=== PATIENT | male | born 1970 | race Caucasian/White ===

== ENCOUNTER 2019-02-23 12:45 | Inpatient (IN) | payer OTHER ==
[2019-02-23] MEDS ORDERED: ONDANSETRON HCL INJ/PF 4 MG/2 ML SDV IV ONE (13:12)
--- NOTE | 2019-02-23 13:15 | ER Document Report ---
ED Medical Screen (RME) - General Chief Complaint: Chest Pain Stated Complaint: DIZZINESS,CHEST PAIN Time Seen by Provider: 02/23/19 12:46 Notes: Patient is a 48-year-old male who presents the emergency department with a chief complaint of chest pain. Patient states that this morning he had a sharp chest pain of his chest that radiated out. It is dull on the sides of his chest. Patient states that he also vomited some "black stuff." He also had some dark tarry stools this morning. Patient takes 800 mg of Motrin daily. Denies jeremiah right red hematemesis. Exam: Soft mildly tender mid abdomen. I have greeted and performed a rapid initial assessment of this patient. A comprehensive ED assessment and evaluation of the patient, analysis of test results and completion of medical decision making process will be conducted by an additional ED providers. TRAVEL OUTSIDE OF THE [place] IN LAST 30 DAYS: No - Related Data Allergies/Adverse Reactions: nuvia Allergy (Verified 02/23/19 13:03) Past Medical History - Social History Chew tobacco use (# tins/day): No Frequency of alcohol use: Social Drug Abuse: None Physical Exam - Vital signs Vitals: Temp Pulse BP Pulse Ox 98.3 F 119 H 145/104 H 99 02/23/19 13:00 02/23/19 13:00 02/23/19 13:00 02/23/19 13:00 Course - Vital Signs Vital signs: Temp Pulse Resp BP Pulse Ox 98.3 F 119 H 145/104 H 99 02/23/19 13:00 02/23/19 13:00 02/23/19 13:00 02/23/19 13:00
[2019-02-23] MEDS ORDERED: ONDANSETRON 4 MG TAB.RAPDIS PO ONE (13:22)
--- NOTE | 2019-02-23 13:46 | RADIOLOGY REPORT (SQ) ---
EXAM DESCRIPTION: CHEST SINGLE VIEW COMPLETED DATE/TIME: 02/23/2019 1:37 pm REASON FOR STUDY: vomiting; chest pain COMPARISON: None. EXAM PARAMETERS: NUMBER OF VIEWS: One view. TECHNIQUE: Single frontal radiographic view of the chest acquired. RADIATION DOSE: NA LIMITATIONS: None. FINDINGS: LUNGS AND PLEURA: No opacities, masses or pneumothorax. No pleural effusion. MEDIASTINUM AND HILAR STRUCTURES: No masses. Contour normal. HEART AND VASCULAR STRUCTURES: Heart normal in size. Normal vasculature. BONES: Old healed left upper lateral rib fractures. Question old nonunited right distal clavicle fra cture at the level of the coracoclavicular ligament HARDWARE: None in the chest. OTHER: No other significant finding. IMPRESSION: No acute findings. TECHNICAL DOCUMENTATION: JOB ID: [id number] [employer]- All Rights Reserved Reading location - IP/workstation name: [email or web address]
[2019-02-23 13:48] LABS: ABSOLUTE BASOPHILS # (AUTO) 0.1 10^3/uL (0.0-0.2); ABSOLUTE LYMPHOCYTES (AUTO) 1.4 10^3/uL (0.5-4.7); ABSOLUTE MONOCYTES (AUTO) 1.4 10^3/uL (0.1-1.4); ABSOLUTE NEUT (AUTO) 12.5 10^3/uL (1.7-8.2); BASOPHILS % (AUTO) 0.6 % (0-2); EOSINOPHILS % (AUTO) 0.1 % (0-6); HEMATOCRIT 50.6 % (37.9-51.0); HEMOGLOBIN 17.7 g/dL (13.5-17.0); LYMPHOCYTES % (AUTO) 8.9 % (13-45); MEAN CORPUSCULAR HEMOGLOBIN 34.9 pg (27.0-33.4); MEAN CORPUSCULAR HGB CONC 34.9 g/dL (32.0-36.0); MEAN CORPUSCULAR VOLUME 100 fl (80-97); PLATELET COUNT 203 10^3/uL (150-450); RED BLOOD COUNT 5.06 10^6/uL (4.35-5.55); RED CELL DISTRIBUTION WIDTH 12.7 % (11.5-14.0); SEGMENTED NEUTROPHILS % (AUTO) 81.4 % (42-78); TOTAL CELLS COUNTED % (AUTO) 100 %; WHITE BLOOD COUNT 15.4 10^3/uL (4.0-10.5)
--- NOTE | 2019-02-23 14:02 | ER Document Report ---
ED General - General Chief Complaint: Chest Pain Stated Complaint: DIZZINESS,CHEST PAIN Time Seen by Provider: 02/23/19 12:46 Primary Care Provider: [facility] [Primary Care Provider] - Follow up as needed TRAVEL OUTSIDE OF THE [place] IN LAST 30 DAYS: No - HPI Notes: Patient is a 48-year-old male with history of GERD, chronic joint pain, and tobacco abuse who presents complaining of lower sternal chest pain, intermittent abdominal pain, nausea/vomiting, loose stool that began yesterday. He does have occ dizziness. Patient states that he had really bad acid reflux yesterday and took a lot of Tums for it. Patient states that he has been taking NSAIDs daily for 25 years for chronic shoulder pain. He is also been drinking wine on occasion. Patient states that his vomiting is all black as well as his stool. He otherwise has had decreased p.o. intake. He is urinating normally. Denies drug allergies. He has never needed a blood transfusion in the past. Denies any headache, fever, URI, sore throat, palpitations, syncope, cough, shortness of breath, wheeze, dyspnea, urinary retention, dysuria, hematuria, back pain, or rash. - Related Data Allergies/Adverse Reactions: nuvia Allergy (Verified 02/23/19 13:03) Past Medical History - Social History Smoking Status: Current Every Day Smoker Chew tobacco use (# tins/day): No Frequency of alcohol use: Social Drug Abuse: None Family History: Reviewed & Not Pertinent Patient has suicidal ideation: No Patient has homicidal ideation: No Review of Systems - Review of Systems -: Yes All other systems reviewed and negative Physical Exam - Vital signs Vitals: Temp Pulse BP Pulse Ox 98.3 F 119 H 145/104 H 99 02/23/19 13:00 02/23/19 13:00 02/23/19 13:00 02/23/19 13:00 - Notes Notes: PHYSICAL EXAMINATION: GENERAL: Well-appearing, well-nourished and in no acute distress. A&Ox4. answers questions appropriately. HEAD: Atraumatic, normocephalic. EYES: Pupils equal round and reactive to light, extraocular movements intact, sclera anicteric, conjunctiva are normal. ENT: Nares patent and without discharge. oropharynx clear without exudates. No tonsilar hypertrophy or erythema. Moist mucous membranes. NECK: Normal range of motion, supple without lymphadenopathy LUNGS: Breath sounds clear to auscultation bilaterally and equal. No wheezes rales or rhonchi. HEART: Regular rate and rhythm without murmurs, rubs, gallops. ABDOMEN: Soft, nondistended abdomen. No guarding, no rebound. Normal bowel sounds present. No CVA tenderness bilaterally. + mild mid abd tenderness. Musculoskeletal: FROM to passive/active. Strength 5+/5. No calf tenderness. Guera neg b/l. No LE asymmetry. Extremities: No cyanosis, clubbing, or edema b/l. Peripheral pulses 2+. Capillary refill less than 3 seconds. NEUROLOGICAL: Cranial nerves grossly intact. Normal speech, normal gait. Normal sensory, motor exams PSYCH: Normal mood, normal affect. SKIN: Warm, Dry, normal turgor, no rashes or lesions noted. Course - Re-evaluation Re-evalutation: 02/23/19 14:17 Bedside guiac was + for melena and blood. UGI bleed suspected and Protonix meds ordered with a type and screen. We will continue cardiac work up as well for now. 02/23/19 14:38 I did call and speak with Dr. Ferreira who states that Dr. Palencia will perform an endoscopy tomorrow for the patient and to admit to medicine with surgical consult. Patient is an afebrile, well-hydrated, 48-year-old male who presents with an upper GI bleed and nonspecific chest pain. Vitals are acceptable without significant tachycardia, tachypnea, or hypoxia. Heart rate on the monitor right now is 96 with a blood pressure of 166/114. He is breathing at 18 breaths/min at 95% on room air. Initial cardiac work up negative. 02/23/19 14:46 I have reviewed this case with Buck charles PA-C who is accepting for Dr. Abdullahi to telemetry. Pt in agreement with plan. - Vital Signs Vital signs: Temp Pulse Resp BP Pulse Ox 98.3 F 119 H 145/104 H 98 02/23/19 13:00 02/23/19 13:00 02/23/19 13:00 02/23/19 14:21 - Laboratory Result Diagrams: 02/23/19 13:28 02/23/19 13:28 Laboratory results interpreted by me: 02/23/19 02/23/19 13:28 13:28 WBC 15.4 H Hgb 17.7 H MCV 100 H MCH 34.9 H Lymph % (Auto) 8.9 L Absolute Neuts (auto) 12.5 H Seg Neutrophils % 81.4 H Chloride 94 L Carbon Dioxide 31 H BUN 21 H Glucose 166 H Calcium 11.6 H AST 93 H Creatine Kinase 51 L Total Protein 8.5 H - EKG Interpretation by Me EKG shows normal: Sinus rhythm Rate: Tachycardia - 105 on ekg Rhythm: NSR When compared to previous EKG there are: Previous EKG unavailable Discharge - Discharge Clinical Impression: UGIB (upper gastrointestinal bleed), Atypical chest pain Condition: Stable Disposition: ADMITTED INPATIENT Admitting Provider: Kaylen (Hospitalist) - for Don Day PA-C Unit Admitted: Telemetry Referrals: [facility] [Primary Care Provider] - Follow up as needed
[2019-02-23] MEDS ORDERED: PANTOPRAZOLE SODIUM 40 MG VIAL IV PRN (14:10)
[2019-02-23] MEDS ORDERED: PANTOPRAZOLE SODIUM 40 MG VIAL IV ONE (14:10)
[2019-02-23] MEDS ORDERED: MORPHINE SULFATE 10 MG/ML INJ IV ONE ×2 (14:11→16:15)
[2019-02-23 14:15] LABS: ALBUMIN 4.6 g/dL (3.5-5.0); ALKALINE PHOSPHATASE 76 U/L (38-126); ANION GAP 13 (5-19); ASPARTATE AMINO TRANSFERASE 93 U/L (17-59); BILIRUBIN,DIRECT 0.2 mg/dL (0.0-0.4); BILIRUBIN,TOTAL 1.2 mg/dL (0.2-1.3); BLOOD UREA NITROGEN 21 mg/dL (7-20); CALCIUM 11.6 mg/dL (8.4-10.2); CARBON DIOXIDE 31 mmol/L (22-30); CHLORIDE 94 mmol/L (98-107); CREATINE KINASE 51 U/L (55-170); GLUCOSE 166 mg/dL (75-110); POTASSIUM 4.7 mmol/L (3.6-5.0); TOTAL PROTEIN 8.5 g/dL (6.3-8.2)
[2019-02-23] MEDS ORDERED: NORMAL SALINE 1000 ML 1,000 ML IV ONE (14:18)
[2019-02-23 14:24] LABS: CREATINE KINASE MB 0.68 ng/mL (<4.55)
[2019-02-23 14:30] LABS: TROPONIN I < 0.012 ng/mL
[2019-02-23] MEDS ORDERED: NITROGLYCERIN 0.4 MG/TAB 25 TAB/BOTTLE ONE (15:16)
[2019-02-23] MEDS ORDERED: NITROGLYCERIN 0.4 MG/TAB 25 TAB/BOTTLE SL ONE (15:17)
[2019-02-23] MEDS ORDERED: LIDOCAINE 2% VISCOUS SOLN 20 ML UDCUP PO ONE (15:35)
[2019-02-23] MEDS ORDERED: MAG HYDROX/AL HYDROX/SIMETH SUSP 30 ML UDCUP PO ONE (15:35)
[2019-02-23] MEDS ORDERED: LORAZEPAM INJ 2 MG/1 ML VIAL IV ONE (15:51)
[2019-02-23 16:18] LABS: INTERNATIONAL RATION (INR) 1.04; PROTHROMBIN TIME 13.6 SEC (11.4-15.4)
[2019-02-23 16:19] LABS: PARTIAL THROMBOPLASTIN TIME 30.4 SEC (23.5-35.8)
[2019-02-23 16:21] LABS: D-DIMER 0.51 ug/mL (0.00-0.50)
[2019-02-23 16:45] LABS: CREATINE KINASE MB 0.62 ng/mL (<4.55)
[2019-02-23 16:47] LABS: TROPONIN I < 0.012 ng/mL
[2019-02-23] MEDS ORDERED: ZOLPIDEM TARTRATE 5 MG TABLET PO PRN (16:55)
[2019-02-23] MEDS ORDERED: ONDANSETRON 4 MG TAB.RAPDIS PO PRN (16:55)
[2019-02-23] MEDS ORDERED: ONDANSETRON HCL INJ/PF 4 MG/2 ML SDV IV PRN (16:55)
[2019-02-23] MEDS ORDERED: NORMAL SALINE 1000 ML 1,000 ML IV PRN (16:55)
[2019-02-23] MEDS ORDERED: NITROGLYCERIN 0.4 MG/TAB 25 TAB/BOTTLE SL PRN (17:05)
[2019-02-23] MEDS ORDERED: DEXTROSE 40% GEL 15 GM TUBE PO PRN ×2 (17:08)
[2019-02-23] MEDS ORDERED: GLUCAGON,HUMAN RECOMB 1 MG INJ IM PRN (17:08)
[2019-02-23] MEDS ORDERED: DEXTROSE 50%-WATER 25 GM/50 ML DISP.SYRIN IV PRN ×2 (17:08)
[2019-02-23] MEDS ORDERED: HYDRALAZINE HCL INJ/PF 20 MG/1 ML SDV IV PRN (17:10)
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
[2019-02-23 18:36] LABS: APPEARANCE,URINE CLEAR; BILIRUBIN,URINE NEGATIVE (NEGATIVE); COLOR,URINE YELLOW; GLUCOSE, URINE 50 mg/dL (NEGATIVE); KETONES,URINE TRACE mg/dL (NEGATIVE); LEUKOCYTE ESTERASE,URINE NEGATIVE (NEGATIVE); NITRITE,URINE NEGATIVE (NEGATIVE); PROTEIN,URINE NEGATIVE (NEGATIVE); URINE SPECIFIC GRAVITY 1.017; UROBILINOGEN,URINE NEGATIVE mg/dL (<2.0)
[2019-02-23 18:46] LABS: CREATINE KINASE MB 0.34 ng/mL (<4.55)
[2019-02-23 18:49] LABS: TROPONIN I < 0.012 ng/mL
--- NOTE | 2019-02-23 19:14 | EKG REPORT ---
SEVERITY:- BORDERLINE ECG - SINUS RHYTHM BORDERLINE LEFT AXIS DEVIATION BORDERLINE T ABNORMALITIES, INFERIOR LEADS : Confirmed by: Vijay Zavala MD 23-Feb-2019 19:14:24
[2019-02-23] MEDS: MORPHINE SULFATE 10 MG/ML INJ IV PRN (21:33)
[2019-02-23] MEDS: INSULIN LISPRO 100 UNIT/ML 3 ML VIAL SUBCUT SCH (22:22)
[2019-02-23] MEDS: LORAZEPAM INJ 2 MG/1 ML VIAL IV PRN (22:26)
[2019-02-23] MEDS: NORMAL SALINE 100 ML with PANTOPRAZOLE SODIUM 80 MG IV PRN ×2 (22:27)
[2019-02-24] MEDS: LORAZEPAM INJ 2 MG/1 ML VIAL IV PRN ×4 (03:22→20:46)
[2019-02-24] MEDS: ACETAMINOPHEN 325 MG TABLET PO PRN (04:13)
[2019-02-24] MEDS ORDERED: PANTOPRAZOLE SODIUM 40 MG VIAL IV ONE (04:18)
[2019-02-24 05:22] LABS: ABSOLUTE EOSINOPHILS # (AUTO) 0.1 10^3/uL (0.0-0.6); ABSOLUTE LYMPHOCYTES (AUTO) 1.6 10^3/uL (0.5-4.7); ABSOLUTE MONOCYTES (AUTO) 1.4 10^3/uL (0.1-1.4); ABSOLUTE NEUT (AUTO) 9.4 10^3/uL (1.7-8.2); BASOPHILS % (AUTO) 0.2 % (0-2); EOSINOPHILS % (AUTO) 0.5 % (0-6); HEMATOCRIT 41.7 % (37.9-51.0); HEMOGLOBIN 14.8 g/dL (13.5-17.0); INTERNATIONAL RATION (INR) 1.08; LYMPHOCYTES % (AUTO) 12.7 % (13-45); MEAN CORPUSCULAR HEMOGLOBIN 35.3 pg (27.0-33.4); MEAN CORPUSCULAR HGB CONC 35.4 g/dL (32.0-36.0); MEAN CORPUSCULAR VOLUME 100 fl (80-97); MONOCYTES % (AUTO) 11.2 % (3-13); PLATELET COUNT 149 10^3/uL (150-450); RED BLOOD COUNT 4.19 10^6/uL (4.35-5.55); RED CELL DISTRIBUTION WIDTH 12.9 % (11.5-14.0); SEGMENTED NEUTROPHILS % (AUTO) 75.4 % (42-78); TOTAL CELLS COUNTED % (AUTO) 100 %; WHITE BLOOD COUNT 12.5 10^3/uL (4.0-10.5)
[2019-02-24 05:23] LABS: PARTIAL THROMBOPLASTIN TIME 30.9 SEC (23.5-35.8)
[2019-02-24 05:33] LABS: AMYLASE 37 U/L (30-110); ANION GAP 10 (5-19); BLOOD UREA NITROGEN 16 mg/dL (7-20); CALCIUM 8.9 mg/dL (8.4-10.2); CARBON DIOXIDE 28 mmol/L (22-30); CHLORIDE 99 mmol/L (98-107); GLUCOSE 130 mg/dL (75-110); POTASSIUM 4.2 mmol/L (3.6-5.0)
[2019-02-24] MEDS: MORPHINE SULFATE 10 MG/ML INJ IV PRN ×5 (06:19→23:31)
[2019-02-24] MEDS: NORMAL SALINE 100 ML with PANTOPRAZOLE SODIUM 80 MG IV PRN ×4 (06:20→18:08)
--- NOTE | 2019-02-24 07:58 | EKG REPORT ---
SEVERITY:- OTHERWISE NORMAL ECG - SINUS TACHYCARDIA : Confirmed by: Vijay Zavala MD 24-Feb-2019 07:57:47
[2019-02-24] MEDS: INSULIN LISPRO 100 UNIT/ML 3 ML VIAL SUBCUT SCH ×4 (07:59→21:46)
--- NOTE | 2019-02-24 07:59 | EKG REPORT ---
SEVERITY:- BORDERLINE ECG - SINUS TACHYCARDIA PROBABLE LEFT ATRIAL ABNORMALITY BORDERLINE LEFT AXIS DEVIATION NONSPECIFIC ST-T CHANGES- INFERIOR LEADS : Confirmed by: Vijay Zavala MD 24-Feb-2019 07:58:29
[2019-02-24] MEDS: DOCUSATE SODIUM 100 MG CAPSULE PO SCH (10:56)
[2019-02-24] MEDS ORDERED: DIAZEPAM 5 MG TABLET PO SCH (12:00)
[2019-02-24] MEDS ORDERED: DIAZEPAM INJ 10 MG/2 ML DISP.SYRIN IV ONE (12:30)
[2019-02-24] MEDS ORDERED: MIDAZOLAM 2 MG/2 ML INJ ONE (14:07)
[2019-02-24] MEDS ORDERED: PROPOFOL INJ 200 MG/20 ML VIAL IV ONE (14:07)
--- NOTE | 2019-02-24 14:55 | Operative Report ---
Operative Report DATE OF SURGERY: 02/24/19 Operative Report: The risks benefits and alternatives of the procedure explained to the patient in detail and informed consent is obtained .A GIF Olympus video scope was inserted into the patient's mouth and hypopharynx, the esophagus is identified intubated and insufflated ,the scope was then advanced through the esophagus stomach and duodenum ,retroflexion maneuver is done, the esophagus stomach and first and second portions of the duodenum examined. PREOPERATIVE DIAGNOSIS: Melena, substernal chest pain POSTOPERATIVE DIAGNOSIS: Erosive esophagitis. Edmonds esophagitis in fact no active bleeding. No varices. No bleeding ulcer. Mild gastritis and duodenitis. Biopsies obtained to rule out Helicobacter pylori OPERATION: EGD with biopsy SURGEON: JUDITH BANDA ANESTHESIA: LMAC TISSUE REMOVED OR ALTERED: As noted above. COMPLICATIONS: None. ESTIMATED BLOOD LOSS: None. INTRAOPERATIVE FINDINGS: As noted above. PROCEDURE: Patient tolerated the procedure well. No immediate postprocedure complications are noted. Patient is sent back to his room in good condition. Resume clear liquid diet advance as tolerated Start Carafate and PPI Discussed with Chelita Singh 2 to 3-week follow-up to discuss findings.
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
[2019-02-24] MEDS: SUCRALFATE 1 GM TABLET PO SCH ×2 (18:07→23:31)
[2019-02-24] MEDS: DIAZEPAM 5 MG TABLET PO SCH ×2 (18:07→23:30)
[2019-02-24] MEDS: NORMAL SALINE 1000 ML 1,000 ML with POTASSIUM CHLORIDE 20 MEQ, MAGNESIUM SULFATE 8 MEQ,... IV SCH ×5 (18:30)
--- NOTE | 2019-02-24 19:04 | PDOC PROGRESS REPORT ---
Subjective Progress Note for:: 02/24/19 Subjective:: The patient is a 48-year-old male with a past medical history of GERD, obesity, arthritis, remote opiate dependence, tobacco dependence with continuous use, benzodiazepine dependence with continuous use who was admitted 02/23/2019 for atypical chest pain and upper GI bleed. Patient was seen on morning rounds prior to his EGD. He is found resting in bed comfortably, lying supine, on room air. He does report continued generalized epigastric discomfort; worsens with swallowing and p.o. intake, relieved by both nitroglycerin tabs and GI cocktail overnight. The patient admits to Motrin 800 mg 3-4 times daily and one glass of wine daily. He denies recreational drug use. He further denies fever, chills, orthopnea, dyspnea, emesis and diarrhea at this time. He does continue to have chest discomfort atypical chest discomfort and nausea. He has no other questions or concerns at this time. No concerns per nursing. Reason For Visit: CP,UGIB,GERD,JOINT PAIN,TOBACCO ABUSE,ABD PAIN Physical Exam Vital Signs: Temp Pulse Resp BP Pulse Ox 99.8 F 101 H 18 126/86 H 95 02/24/19 18:00 02/24/19 18:00 02/24/19 18:00 02/24/19 18:00 02/24/19 18:00 Intake & Output 02/23/19 02/24/19 02/25/19 06:59 06:59 06:59 Intake Total 1197 718 Output Total 200 1150 Balance 997 -432 Weight 98.2 kg General appearance: PRESENT: no acute distress, disheveled, obese, well- developed, well-nourished Head exam: PRESENT: atraumatic, normocephalic Eye exam: PRESENT: conjunctiva pink, EOMI, PERRLA. ABSENT: scleral icterus Ear exam: PRESENT: normal external ear exam Mouth exam: PRESENT: moist, tongue midline Respiratory exam: PRESENT: clear to auscultation ailin, symmetrical, unlabored. ABSENT: rales, rhonchi, wheezes Cardiovascular exam: PRESENT: RRR, +S1, +S2, tachycardia. ABSENT: diastolic murmur, rubs, systolic murmur Pulses: PRESENT: normal dorsalis pedis pul Vascular exam: PRESENT: normal capillary refill GI/Abdominal exam: PRESENT: normal bowel sounds, soft, tenderness. ABSENT: distended, guarding, mass, organolmegaly, rebound Rectal exam: PRESENT: deferred Extremities exam: PRESENT: full ROM. ABSENT: calf tenderness, clubbing, pedal edema Neurological exam: PRESENT: alert, awake, oriented to person, oriented to place, oriented to time, oriented to situation, CN II-XII grossly intact. ABSENT: mo tor sensory deficit Psychiatric exam: PRESENT: agitated, appropriate affect, normal mood. ABSENT: homicidal ideation, suicidal ideation Skin exam: PRESENT: dry, intact, warm. ABSENT: cyanosis, rash Results Laboratory Results: 02/24/19 04:33 02/24/19 04:33 02/24/19 02/24/19 04:33 04:33 WBC 12.5 H RBC 4.19 L Hgb 14.8 D Hct 41.7 MCV 100 H MCH 35.3 H MCHC 35.4 RDW 12.9 Plt Count 149 L Seg Neutrophils % 75.4 Sodium 136.5 L Potassium 4.2 Chloride 99 Carbon Dioxide 28 Anion Gap 10 BUN 16 Creatinine 0.80 Est GFR ( Amer) > 60 Glucose 130 H Calcium 8.9 Magnesium 1.5 L Amylase 37 Lipase 69.1 02/23/19 02/23/19 02/23/19 13:28 13:28 15:38 Creatine Kinase 51 L 46 L CK-MB (CK-2) 0.68 Troponin I < 0.012 02/23/19 02/23/19 15:38 18:06 Creatine Kinase CK-MB (CK-2) 0.62 0.34 Troponin I < 0.012 < 0.012 Impressions: Chest X-Ray 02/23/19 13:12 IMPRESSION: No acute findings. Assessment and Plan - Diagnosis (1) Esophagitis Is this a current diagnosis for this admission?: Yes Plan: Confirmed by EGD by Dr. Wallace today. Biopsies pending. Continue PPI. Start Carafate. Analgesics and antiemetics as needed. Resume clear liquid diet; will advance as tolerated. (2) Alcohol use disorder Is this a current diagnosis for this admission?: Yes Plan: Patient admits to drinking 1 glass of wine daily. Serum EtOH negative at admission. However, he does have multiple red flags for potential withdrawal (diaphoresis, tremulous, agitation, tachycardia). We will start on scheduled and as needed benzodiazepines for prevention of alcohol withdrawal. IV banana bag. Fall, seizure, aspiration precautions. Discharge planning is consulted. (3) Atypical chest pain Is this a current diagnosis for this admission?: Yes Plan: Secondary to #1. EKG shows normal sinus rhythm. Serial troponins are negative. Continue to monitor on telemetry. Remaining management as above. (4) UGIB (upper gastrointestinal bleed) Is this a current diagnosis for this admission?: Yes Plan: Secondary to erosive perez esophagitis, mild gastric and duodenitis, without varices or bleeding ulcers. Continue PPI. Start Carafate. Gastroenterology is consulted; follow-up as an outpatient 2 to 3 weeks. Antiemetics as needed. Clear liquid diet; advance as tolerated. Monitor H&H. (5) Tobacco dependence Is this a current diagnosis for this admission?: Yes Plan: Smoking cessation encouraged. Nicotine replacement therapies provided. (6) GERD (gastroesophageal reflux disease) Qualifiers: Esophagitis presence: with esophagitis Qualified Code(s): K21.0 - Gastro- esophageal reflux disease with esophagitis Is this a current diagnosis for this admission?: Yes Plan: Evaluation and management as above.
[2019-02-24] MEDS: NICOTINE 14 MG/24 HR PATCH.TD24 TD SCH ×2 (20:14→20:21)
[2019-02-25] MEDS: MORPHINE SULFATE 10 MG/ML INJ IV PRN ×6 (02:12→23:30)
[2019-02-25] MEDS: LORAZEPAM INJ 2 MG/1 ML VIAL IV PRN ×4 (03:42→21:05)
[2019-02-25] MEDS: DIAZEPAM 5 MG TABLET PO SCH ×4 (05:19→23:29)
[2019-02-25] MEDS: SUCRALFATE 1 GM TABLET PO SCH ×4 (05:19→23:29)
[2019-02-25] MEDS: NORMAL SALINE 100 ML with PANTOPRAZOLE SODIUM 80 MG IV PRN ×2 (06:46)
[2019-02-25 07:22] LABS: HEMATOCRIT 38.8 % (37.9-51.0); HEMOGLOBIN 13.5 g/dL (13.5-17.0); MEAN CORPUSCULAR HEMOGLOBIN 35.1 pg (27.0-33.4); MEAN CORPUSCULAR HGB CONC 34.9 g/dL (32.0-36.0); MEAN CORPUSCULAR VOLUME 101 fl (80-97); PLATELET COUNT 129 10^3/uL (150-450); RED BLOOD COUNT 3.85 10^6/uL (4.35-5.55); RED CELL DISTRIBUTION WIDTH 12.7 % (11.5-14.0); WHITE BLOOD COUNT 7.3 10^3/uL (4.0-10.5)
[2019-02-25 07:45] LABS: ALBUMIN 3.2 g/dL (3.5-5.0); ALKALINE PHOSPHATASE 44 U/L (38-126); ASPARTATE AMINO TRANSFERASE 73 U/L (17-59); BILIRUBIN,DIRECT 0.3 mg/dL (0.0-0.4); BILIRUBIN,TOTAL 0.9 mg/dL (0.2-1.3); BLOOD UREA NITROGEN 9 mg/dL (7-20); CALCIUM 8.2 mg/dL (8.4-10.2); GLUCOSE 131 mg/dL (75-110); POTASSIUM 3.8 mmol/L (3.6-5.0); TOTAL PROTEIN 6.3 g/dL (6.3-8.2)
[2019-02-25 07:50] LABS: ANION GAP 6 (5-19); CARBON DIOXIDE 29 mmol/L (22-30); CHLORIDE 100 mmol/L (98-107)
[2019-02-25] MEDS: INSULIN LISPRO 100 UNIT/ML 3 ML VIAL SUBCUT SCH ×4 (08:12→22:20)
--- NOTE | 2019-02-25 08:46 | PDOC PROGRESS REPORT ---
Subjective Progress Note for:: 02/25/19 Subjective:: Hgb is stable after hydration had EGD yesterday severe perez esophageal ulceration had recommended Carafate and PPI no active bleeding is noted no significant overnight events Reason For Visit: CP,UGIB,GERD,JOINT PAIN,TOBACCO ABUSE,ABD PAIN Physical Exam Vital Signs: Temp Pulse Resp BP Pulse Ox 98.3 F 79 18 131/84 H 91 L 02/25/19 07:43 02/25/19 07:43 02/25/19 07:43 02/25/19 07:43 02/25/19 07:43 Intake & Output 02/24/19 02/25/19 02/26/19 06:59 06:59 06:59 Intake Total 1197 2432 Output Total 200 2150 Balance 997 282 Weight 98.2 kg 99.8 kg General appearance: PRESENT: no acute distress, well-developed, well-nourished Head exam: PRESENT: atraumatic, normocephalic Eye exam: PRESENT: EOMI, PERRLA. ABSENT: scleral icterus Mouth exam: PRESENT: moist, neck supple Throat exam: ABSENT: tonsillar exudate, tonsillogmegaly Neck exam: ABSENT: meningismus, tenderness, thyromegaly Respiratory exam: PRESENT: symmetrical, unlabored. ABSENT: wheezes Cardiovascular exam: PRESENT: +S1, +S2 GI/Abdominal exam: PRESENT: rebound, soft. ABSENT: rigid, tenderness Extremities exam: ABSENT: joint swelling Neurological exam: PRESENT: oriented to time, oriented to situation Skin exam: PRESENT: normal color. ABSENT: mottled, pallor, petechiae, urticaria, vesicles Results Laboratory Results: 02/25/19 07:11 02/25/19 07:11 02/25/19 02/25/19 07:11 07:11 WBC 7.3 RBC 3.85 L Hgb 13.5 Hct 38.8 MCV 101 H MCH 35.1 H MCHC 34.9 RDW 12.7 Plt Count 129 L Sodium 135.4 L Potassium 3.8 Chloride 100 Carbon Dioxide 29 Anion Gap 6 BUN 9 Creatinine 0.75 Est GFR ( Amer) > 60 Glucose 131 H Calcium 8.2 L Magnesium 2.0 Total Bilirubin 0.9 AST 73 H Alkaline Phosphatase 44 Total Protein 6.3 Albumin 3.2 L 02/23/19 02/23/19 02/23/19 13:28 13:28 15:38 Creatine Kinase 51 L 46 L CK-MB (CK-2) 0.68 Troponin I < 0.012 02/23/19 02/23/19 15:38 18:06 Creatine Kinase CK-MB (CK-2) 0.62 0.34 Troponin I < 0.012 < 0.012 Impressions: Chest X-Ray 02/23/19 13:12 IMPRESSION: No acute findings. Assessment & Plan - Diagnosis (1) Atypical chest pain Is this a current diagnosis for this admission?: Yes Plan: due to signifcant erosive esophagitis no ulcers noted no varices etoh counselling follow up as outpatient watch H/H outpatient PPI follow up EGD in 6 weeks as outpatient (2) UGIB (upper gastrointestinal bleed) Is this a current diagnosis for this admission?: Yes - Time Time Spent with patient: 15-24 minutes
[2019-02-25] MEDS: NICOTINE 14 MG/24 HR PATCH.TD24 TD SCH (10:33)
[2019-02-25] MEDS: DOCUSATE SODIUM 100 MG CAPSULE PO SCH (10:33)
[2019-02-25] MEDS ORDERED: MAG HYDROX/AL HYDROX/SIMETH SUSP 30 ML UDCUP PO PRN (11:45)
[2019-02-25] MEDS ORDERED: METOCLOPRAMIDE HCL ORAL SOLN 10 MG/10 ML UDCUP PO PRN (11:45)
[2019-02-25] MEDS ORDERED: LIDOCAINE 2% VISCOUS SOLN 20 ML UDCUP PO PRN (11:45)
[2019-02-25] MEDS ORDERED: METOCLOPRAMIDE HCL ORAL SOLN 10 MG/10 ML UDCUP PO ONE (12:30)
[2019-02-25] MEDS ORDERED: MAG HYDROX/AL HYDROX/SIMETH SUSP 30 ML UDCUP PO ONE (12:30)
[2019-02-25] MEDS ORDERED: LIDOCAINE 2% VISCOUS SOLN 20 ML UDCUP PO ONE (12:30)
--- NOTE | 2019-02-25 13:20 | PDOC PROGRESS REPORT ---
Subjective Progress Note for:: 02/25/19 Subjective:: The patient is a 48-year-old male with a past medical history of GERD, obesity, arthritis, remote opiate dependence, tobacco dependence with continuous use, benzodiazepine dependence with continuous use who was admitted 02/23/2019 for atypical chest pain and upper GI bleed. Patient was seen on morning rounds. He is found resting in bed, comfortably, on room air. He does report continued epigastric discomfort; worsens with swallowing and p.o. intake. Patient confirms heavy NSAID use and alcohol use (1/2 bottle wine nightly x20 years). He denies fever, chills, orthopnea, dyspnea, emesis and diarrhea at this time. Not yet tolerating p.o. intake. He has no other questions or concerns at this time. No concerns per nursing. Reason For Visit: CP,UGIB,GERD,JOINT PAIN,TOBACCO ABUSE,ABD PAIN Physical Exam Vital Signs: Temp Pulse Resp BP Pulse Ox 98.4 F 78 20 136/81 H 95 02/25/19 10:48 02/25/19 10:48 02/25/19 10:48 02/25/19 10:48 02/25/19 10:48 Intake & Output 02/24/19 02/25/19 02/26/19 06:59 06:59 06:59 Intake Total 1197 2432 Output Total 200 2150 Balance 997 282 Weight 98.2 kg 99.8 kg General appearance: PRESENT: no acute distress, obese, well-developed, well- nourished Head exam: PRESENT: atraumatic, normocephalic Eye exam: PRESENT: conjunctiva pink, EOMI, PERRLA. ABSENT: scleral icterus Ear exam: PRESENT: normal external ear exam Mouth exam: PRESENT: moist, tongue midline Respiratory exam: PRESENT: clear to auscultation ailin, symmetrical, unlabored. ABSENT: rales, rhonchi, wheezes Cardiovascular exam: PRESENT: RRR, +S1, +S2. ABSENT: diastolic murmur, rubs, systolic murmur Pulses: PRESENT: normal dorsalis pedis pul Vascular exam: PRESENT: normal capillary refill GI/Abdominal exam: PRESENT: normal bowel sounds, soft, tenderness - epigastric. ABSENT: distended, guarding, mass, organolmegaly, rebound Rectal exam: PRESENT: deferred Extremities exam: PRESENT: full ROM. ABSENT: calf tenderness, clubbing, pedal edema Neurological exam: PRESENT: alert, awake, oriented to person, oriented to place, oriented to time, oriented to situation, CN II-XII grossly intact. ABSENT: mo tor sensory deficit Psychiatric exam: PRESENT: appropriate affect, normal mood. ABSENT: homicidal ideation, suicidal ideation Skin exam: PRESENT: dry, intact, warm. ABSENT: cyanosis, rash Results Laboratory Results: 02/25/19 07:11 02/25/19 07:11 02/25/19 02/25/19 07:11 07:11 WBC 7.3 RBC 3.85 L Hgb 13.5 Hct 38.8 MCV 101 H MCH 35.1 H MCHC 34.9 RDW 12.7 Plt Count 129 L Sodium 135.4 L Potassium 3.8 Chloride 100 Carbon Dioxide 29 Anion Gap 6 BUN 9 Creatinine 0.75 Est GFR ( Amer) > 60 Glucose 131 H Calcium 8.2 L Magnesium 2.0 Total Bilirubin 0.9 AST 73 H Alkaline Phosphatase 44 Total Protein 6.3 Albumin 3.2 L 02/23/19 02/23/19 02/23/19 13:28 13:28 15:38 Creatine Kinase 51 L 46 L CK-MB (CK-2) 0.68 Troponin I < 0.012 02/23/19 02/23/19 15:38 18:06 Creatine Kinase CK-MB (CK-2) 0.62 0.34 Troponin I < 0.012 < 0.012 Impressions: Chest X-Ray 02/23/19 13:12 IMPRESSION: No acute findings. Assessment and Plan - Diagnosis (1) Esophagitis Is this a current diagnosis for this admission?: Yes Plan: Confirmed by EGD by Dr. Wallace Biopsies pending. Continue PPI. Start Carafate. GI cocktail q6h prn Analgesics and antiemetics as needed. Advance to soft, bland, diet today. (2) Alcohol use disorder Is this a current diagnosis for this admission?: Yes Plan: Patient admits to drinking 1/2 bottle of wine daily. Serum EtOH negative at admission. Contninue scheduled and as needed benzodiazepines for prevention of alcohol withdrawal. IV banana bag. Fall, seizure, aspiration precautions. Discharge planning is consulted. (3) Atypical chest pain Is this a current diagnosis for this admission?: Yes Plan: Secondary to #1. EKG shows normal sinus rhythm. Serial troponins are negative. Continue to monitor on telemetry. Remaining management as above. (4) UGIB (upper gastrointestinal bleed) Is this a current diagnosis for this admission?: Yes Plan: Secondary to erosive perez esophagitis, mild gastric and duodenitis, without varices or bleeding ulcers. Continue PPI. Start Carafate. Gastroenterology is consulted; follow-up as an outpatient 2 to 3 weeks. Antiemetics as needed. Clear liquid diet; advance as tolerated. Monitor H&H. (5) Tobacco dependence Is this a current diagnosis for this admission?: Yes Plan: Smoking cessation encouraged. Nicotine replacement therapies provided. (6) GERD (gastroesophageal reflux disease) Qualifiers: Esophagitis presence: with esophagitis Qualified Code(s): K21.0 - Gastro- esophageal reflux disease with esophagitis Is this a current diagnosis for this admission?: Yes Plan: Evaluation and management as above. - Time Time Spent with patient: 15-24 minutes Medications reviewed and adjusted accordingly: Yes Anticipated discharge: Home Within: within 24 hours - if tolerating p.o. intake
[2019-02-25] MEDS: NORMAL SALINE 1000 ML 1,000 ML with POTASSIUM CHLORIDE 20 MEQ, MAGNESIUM SULFATE 8 MEQ,... IV SCH ×5 (18:19)
[2019-02-26] MEDS: NORMAL SALINE 100 ML with PANTOPRAZOLE SODIUM 80 MG IV PRN ×2 (02:51)
[2019-02-26] MEDS: LORAZEPAM INJ 2 MG/1 ML VIAL IV PRN (02:51)
[2019-02-26] MEDS: DIAZEPAM 5 MG TABLET PO SCH ×2 (06:53→11:11)
[2019-02-26] MEDS: SUCRALFATE 1 GM TABLET PO SCH ×2 (06:53→11:11)
[2019-02-26] MEDS: MORPHINE SULFATE 10 MG/ML INJ IV PRN (06:59)
[2019-02-26] MEDS ORDERED: LORAZEPAM INJ 2 MG/1 ML VIAL IV PRN (07:48)
[2019-02-26] MEDS ORDERED: PANTOPRAZOLE SODIUM 40 MG TABLET.DR PO SCH (07:50)
[2019-02-26] MEDS: INSULIN LISPRO 100 UNIT/ML 3 ML VIAL SUBCUT SCH (07:57)
[2019-02-26] MEDS: NICOTINE 14 MG/24 HR PATCH.TD24 TD SCH (09:15)
[2019-02-26] MEDS: ACETAMINOPHEN 325 MG TABLET PO PRN (09:15)
[2019-02-26] MEDS: DOCUSATE SODIUM 100 MG CAPSULE PO SCH (09:17)
[2019-02-26] MEDS ORDERED: THIAMINE HCL 100 MG TABLET PO SCH (10:00)
[2019-02-26] MEDS ORDERED: MULTIVITAMIN TABLET PO SCH (10:00)
[2019-02-26] MEDS ORDERED: FOLIC ACID 1 MG TABLET PO SCH (10:00)
[2019-02-26 11:00] VITALS: BP 132/83
--- NOTE | 2019-03-01 17:49 | PDOC DISCHARGE SUMMARY ---
Impression - Admit/DC Date/PCP Admission Date/Primary Care Provider: 02/23/19 15:07 [facility] Discharge Date: 02/26/19 - Discharge Diagnosis (1) Esophagitis Is this a current diagnosis for this admission?: Yes (2) Alcohol use disorder Is this a current diagnosis for this admission?: Yes (3) Atypical chest pain Is this a current diagnosis for this admission?: Yes (4) UGIB (upper gastrointestinal bleed) Is this a current diagnosis for this admission?: Yes (5) Tobacco dependence Is this a current diagnosis for this admission?: Yes (6) GERD (gastroesophageal reflux disease) Is this a current diagnosis for this admission?: Yes - Additional Information Resuscitation Status: Full Code Discharge Diet: As Tolerated Discharge Activity: Activity As Tolerated, Balance Activity w/Rest, Slowly Increase Activity Referrals: JUDITH WALLACE MD [ACTIVE STAFF] - (MAKE SURE HE BRINGS AUTHORIZATION FROM THE [facility] [Primary Care Provider] - 04/14/19 10:00 am Prescriptions: Sucralfate [Carafate 1 gm Tablet] 1 gm PO Q6 #120 tablet Folic Acid [Folvite 1 mg Tablet] 1 mg PO DAILY #90 tablet Mag Hydrox/Al Hydrox/Simeth [Maalox Plus Susp 30 Udcup] 30 ml PO Q6HP PRN #20 udc PRN Reason: Nicotine [Nicoderm 14 mg/24 Hr Transdermal Patch] 1 each TD DAILY #30 patch.td24 Oxycodone HCl/Acetaminophen [Percocet 5-325 mg Tablet] 1 tab PO Q6HP PRN #15 tab PRN Reason: Severe Pain Pantoprazole Sodium [Protonix [address] Tablet] 40 mg PO BID@0600,1700 #60 tablet.dr Multivitamin [Tab-A-Roberto Carlos (Multiple Vitamin) Tablet] 1 tab PO DAILY #90 tablet Thiamine HCl [Thiamine 100 mg Tablet] 100 mg PO DAILY #90 tablet Diazepam [Valium 5 mg Tablet] 10 mg PO ASDIR PRN #14 tablet PRN Reason: Lidocaine HCl [Xylocaine 2% Viscous Soln 20 ml Udcup] 15 ml PO Q6HP PRN #20 udc PRN Reason: Ondansetron [Zofran Odt 4 mg Tablet] 4 mg PO Q6HP PRN #20 tab.rapdis PRN Reason: Home Medications: Alprazolam [Xanax] 1 mg PO Q2DAYS 02/23/19 Ibuprofen [Motrin 800 mg Tablet] 800 mg PO Q6HP PRN 02/23/19 Acetaminophen [Tylenol 325 mg Tablet] 650 mg PO Q4HP PRN tablet 02/26/19 Diazepam [Valium 5 mg Tablet] 10 mg PO ASDIR PRN #14 tablet 02/26/19 Folic Acid [Folvite 1 mg Tablet] 1 mg PO DAILY #90 tablet 02/26/19 Lidocaine HCl [Xylocaine 2% Viscous Soln 20 ml Udcup] 15 ml PO Q6HP PRN #20 udc 02/26/19 Mag Hydrox/Al Hydrox/Simeth [Maalox Plus Susp 30 Udcup] 30 ml PO Q6HP PRN #20 udc 02/26/19 Multivitamin [Tab-A-Roberto Carlos (Multiple Vitamin) Tablet] 1 tab PO DAILY #90 tablet 02/26/19 Nicotine [Nicoderm 14 mg/24 Hr Transdermal Patch] 1 each TD DAILY #30 patch.td24 02/26/19 Ondansetron [Zofran Odt 4 mg Tablet] 4 mg PO Q6HP PRN #20 tab.rapdis 02/26/19 Oxycodone HCl/Acetaminophen [Percocet 5-325 mg Tablet] 1 tab PO Q6HP PRN #15 tab 02/26/19 Pantoprazole Sodium [Protonix [address] Tablet] 40 mg PO BID@0600,1700 #60 tablet.dr 02/26/19 Sucralfate [Carafate 1 gm Tablet] 1 gm PO Q6 #120 tablet 02/26/19 Thiamine HCl [Thiamine 100 mg Tablet] 100 mg PO DAILY #90 tablet 02/26/19 History of Present Illiness History of Present Illness: Per H&P by PRABHJOT Brito: PRADIP FERNANDEZ is a 48 year old male comes in through the emergency room with a 1 day history of lower sternal chest pain intermittent abdominal pain vomiting. Patient states that this morning his vomiting produced black substance and also he had black tarry stools as well. States he has been taking Motrin on a daily basis for the last 25 years for chronic shoulder pain. She comes to the emergency room now complaining of dizziness and chest pain as well as abdominal pain. I went to see the patient in the emergency room to admit him he was clammy diaphoretic writhing on the bed complaining of chest pain. Patient had been given 4 of morphine earlier and one nitro. His vital signs at that time showed his pulse to be 11 his blood pressure had been as high as 185/120 and I saw him it was 153/85. First troponin was normal 2 hours ago. Subsequently I ordered nitro sublingual x2. Brought his pain down significantly as well as his blood pressure 102/67. Patient was then given a GI cocktail which also relieved his chest pain. Repeat EKG at that time compared to his initial presenting EKG showed no significant changes. Stat troponin was once again normal and d-dimer was only slightly elevated at 0.51 Recheck of the patient in approximately 1 hour found him to be comfortable resting 1 out of 5 chest pain. She had been put on a Protonix drip emergency room giving a bolus of Protonix IV.. General surgery Dr. Ferreira has seen the patient and has tentatively scheduled him for a upper endoscopy tomorrow by 1 of his partners. Patient appears stable at this time but I am going to get 2 more troponins 6 hours apart, ordered IV morphine as well as IV Ativan as needed. Patient will be kept n.p.o. after midnight and will have a clear liquid dinner Because of my concern at the time I saw the patient in the ER I asked for the attending physician to come to the bedside. Dr. Borja responded immediately and made medical recommendations which are carried out Hospital Course Hospital Course: The patient was admitted to the medical floor and continuous cardiac telemetry. He was placed in n.p.o. status and supported with IV fluids, a Protonix drip, analgesics and antiemetics as needed.. Serial troponins remained negative x3. Therefore, the patient underwent an EGD With Dr. Miller on 02/24/2018. Dr. Wallace found perez esophagitis, erosive esophagitis; no varices or bleeding ulcers, mild gastritis and duodenitis. The patient was placed on Carafate with utilization of GI cocktails before meals and at bedtime as needed. He was placed on a clear liquid diet advance as tolerated. He did require scheduled Valium and IV Ativan for management of alcohol withdrawal. Upon discharge, the patient's discomfort was adequately well controlled with oral medications. He was tolerating a soft, low residue diet, and drinking adequate fluids. The patient was discharged home in stable condition. He is prescribed Protonix, Carafate, viscous lidocaine/Maalox, Zofran and oxycodone for his pain. He is prescribed a Valium taper, multivitamin, thiamine, and folic acid for management of his alcohol dependence. He is advised to follow-up with his primary care provider within 1 week. He is instructed to follow-up with Dr. Wallace in 4 to 6 weeks. He is advised to stop drinking alcohol and to no longer take NSAIDs. He is encouraged to stop smoking. He is instructed to return to the emergency department as needed for concerning symptoms. Physical Exam Vital Signs: Temp Pulse Resp BP Pulse Ox 98.6 F 81 16 132/83 H 96 02/26/19 10:55 02/26/19 10:55 02/26/19 10:55 02/26/19 10:55 02/26/19 10:55 General appearance: PRESENT: no acute distress, cooperative, disheveled, well- developed, well-nourished Head exam: PRESENT: atraumatic, normocephalic Eye exam: PRESENT: conjunctiva pink, EOMI, PERRLA. ABSENT: scleral icterus Ear exam: PRESENT: normal external ear exam Mouth exam: PRESENT: moist, tongue midline Respiratory exam: PRESENT: clear to auscultation ailin, symmetrical, unlabored. ABSENT: rales, rhonchi, wheezes Cardiovascular exam: PRESENT: RRR, +S1, +S2. ABSENT: diastolic murmur, rubs, systolic murmur Pulses: PRESENT: normal dorsalis pedis pul Vascular exam: PRESENT: normal capillary refill GI/Abdominal exam: PRESENT: normal bowel sounds, soft. ABSENT: distended, guarding, mass, organolmegaly, rebound, tenderness Rectal exam: PRESENT: deferred Extremities exam: PRESENT: full ROM. ABSENT: calf tenderness, clubbing, pedal edema Musculoskeletal exam: PRESENT: ambulatory Neurological exam: PRESENT: alert, awake, oriented to person, oriented to place, oriented to time, oriented to situation, CN II-XII grossly intact. ABSENT: motor sensory deficit Psychiatric exam: PRESENT: appropriate affect, normal mood. ABSENT: homicidal ideation, suicidal ideation Skin exam: PRESENT: dry, intact, warm. ABSENT: cyanosis, rash Results Laboratory Results: WBC 7.3 10^3/uL (4.0-10.5) 02/25/19 07:11 RBC 3.85 10^6/uL (4.35-5.55) L 02/25/19 07:11 Hgb 13.5 g/dL (13.5-17.0) 02/25/19 07:11 Hct 38.8 % (37.9-51.0) 02/25/19 07:11 MCV 101 fl (80-97) H 02/25/19 07:11 MCH 35.1 pg (27.0-33.4) H 02/25/19 07:11 MCHC 34.9 g/dL (32.0-36.0) 02/25/19 07:11 RDW 12.7 % (11.5-14.0) 02/25/19 07:11 Plt Count 129 10^3/uL (150-450) L 02/25/19 07:11 Lymph % (Auto) 12.7 % (13-45) L 02/24/19 04:33 [place] % (Auto) 11.2 % (3-13) 02/24/19 04:33 Eos % (Auto) 0.5 % (0-6) 02/24/19 04:33 Baso % (Auto) 0.2 % (0-2) 02/24/19 04:33 Absolute Neuts (auto) 9.4 10^3/uL (1.7-8.2) H 02/24/19 04:33 Absolute Lymphs (auto) 1.6 10^3/uL (0.5-4.7) 02/24/19 04:33 Absolute Monos (auto) 1.4 10^3/uL (0.1-1.4) 02/24/19 04:33 Absolute Eos (auto) 0.1 10^3/uL (0.0-0.6) 02/24/19 04:33 Absolute Basos (auto) 0.0 10^3/uL (0.0-0.2) 02/24/19 04:33 Seg Neutrophils % 75.4 % (42-78) 02/24/19 04:33 PT 14.0 SEC (11.4-15.4) 02/24/19 04:33 INR 1.08 02/24/19 04:33 APTT 30.9 SEC (23.5-35.8) 02/24/19 04:33 D-Dimer 0.51 ug/mL (0.00-0.50) H 02/23/19 16:00 Sodium 135.4 mmol/L (137-145) L 02/25/19 07:11 Potassium 3.8 mmol/L (3.6-5.0) 02/25/19 07:11 Chloride 100 mmol/L (98-107) 02/25/19 07:11 Carbon Dioxide 29 mmol/L (22-30) 02/25/19 07:11 Anion Gap 6 (5-19) 02/25/19 07:11 BUN 9 mg/dL (7-20) 02/25/19 07:11 Creatinine 0.75 mg/dL (0.52-1.25) 02/25/19 07:11 Est GFR ( Amer) > 60 (>60) 02/25/19 07:11 Est GFR (MDRD) Non-Af > 60 (>60) 02/25/19 07:11 Glucose 131 mg/dL (75-110) H 02/25/19 07:11 POC Glucose 100 mg/dL (70-110) 02/26/19 06:11 Calcium 8.2 mg/dL (8.4-10.2) L 02/25/19 07:11 Magnesium 2.0 mg/dL (1.6-2.3) 02/25/19 07:11 Total Bilirubin 0.9 mg/dL (0.2-1.3) 02/25/19 07:11 Direct Bilirubin 0.3 mg/dL (0.0-0.4) 02/25/19 07:11 Neonat Total Bilirubin Not Reportable 02/25/19 07:11 Neonat Direct Bilirubin Not Reportable 02/25/19 07:11 Neonat Indirect Bili Not Reportable 02/25/19 07:11 AST 73 U/L (17-59) H 02/25/19 07:11 ALT 70 U/L (<50) 02/25/19 07:11 Alkaline Phosphatase 44 U/L (38-126) 02/25/19 07:11 Creatine Kinase 46 U/L (55-170) L 02/23/19 15:38 CK-MB (CK-2) 0.34 ng/mL (<4.55) 02/23/19 18:06 Troponin I < 0.012 ng/mL 02/23/19 18:06 Total Protein 6.3 g/dL (6.3-8.2) 02/25/19 07:11 Albumin 3.2 g/dL (3.5-5.0) L 02/25/19 07:11 Amylase 37 U/L (30-110) 02/24/19 04:33 Lipase 69.1 U/L (23-300) 02/24/19 04:33 Urine Color YELLOW 02/23/19 18:22 Urine Appearance CLEAR 02/23/19 18:22 Urine pH 7.0 (5.0-9.0) 02/23/19 18:22 Ur Specific [place] 1.017 02/23/19 18:22 Urine Protein NEGATIVE mg/dL (NEGATIVE) 02/23/19 18:22 Urine Glucose (UA) 50 mg/dL (NEGATIVE) H 02/23/19 18:22 Urine Ketones TRACE mg/dL (NEGATIVE) H 02/23/19 18:22 Urine Blood NEGATIVE (NEGATIVE) 02/23/19 18:22 Urine Nitrite NEGATIVE (NEGATIVE) 02/23/19 18:22 Urine Bilirubin NEGATIVE (NEGATIVE) 02/23/19 18:22 Urine Urobilinogen NEGATIVE mg/dL (<2.0) 02/23/19 18:22 Ur Leukocyte Esterase NEGATIVE (NEGATIVE) 02/23/19 18:22 Urine WBC (Auto) 0 /HPF 02/23/19 18:22 Urine RBC (Auto) 0 /HPF 02/23/19 18:22 Urine Mucus (Auto) RARE /LPF 02/23/19 18:22 Urine Ascorbic Acid NEGATIVE (NEGATIVE) 02/23/19 18:22 POC Stool Occult Blood POSITIVE (NEGATIVE) 02/23/19 14:10 Serum Alcohol < 10 mg/dL (NONE DETECTED) 02/23/19 13:28 Blood Type B NEGATIVE 02/23/19 14:15 Antibody Screen NEGATIVE 02/23/19 14:15 02/23/19 02/23/19 02/23/19 13:28 15:38 18:06 CK-MB (CK-2) 0.68 0.62 0.34 Troponin I < 0.012 < 0.012 < 0.012 Impressions: Chest X-Ray 02/23/19 13:12 IMPRESSION: No acute findings. Plan Plan of Treatment: The patient is discharged home in stable condition. He is advised to follow-up with his primary care provider within 1 week. He is instructed to follow-up with Dr. Miller in 4 to 6 weeks. He is instructed to take his medications as prescribed. He is strongly encouraged not to drink alcohol, take NSAIDs, or smoke. He is educated on a reflux diet; to start with a bland soft diet and advance slowly as tolerated. Patient is advised to return to the emergency department as needed for concerning symptoms. Time Spent: Greater than 30 Minutes Stroke Is this a Stroke Patient?: No Acute Heart Failure - Is this a Heart Failure Patient?: No
== END 2019-02-26 12:32 | disposition home or self-care (01) | DRG 391 ==
LOC: ER 12:45 → EH 15:07 → 4S 19:42
PROVIDERS: ADMIT Internal Medicine; ATTEND Internal Medicine
PROC: 0DB58ZX Excision of Esophagus, Via Natural or Artificial Opening Endoscopic, Diagnostic (ICD-10-PCS; principal; 2019-02-23)
DX: K21.0 Gastro-esophageal reflux disease with esophagitis (principal); K29.71 Gastritis, unspecified, with bleeding; K29.81 Duodenitis with bleeding; K22.11 Ulcer of esophagus with bleeding; R07.89 Other chest pain; K44.9 Diaphragmatic hernia without obstruction or gangrene; K22.8 Other specified diseases of esophagus; E66.9 Obesity, unspecified; F17.210 Nicotine dependence, cigarettes, uncomplicated; Z91.018 Allergy to other foods; Z79.899 Other long term (current) drug therapy
CPT/HCPCS: 36415; 43239; 71045; 731; 80048; 80053; 80307; 81001; 82150; 82550; 82553; 82962; 83690; 83735; 84484; 85025; 85027; 85379; 85610; 85730; 86850; 86900; 86901; 88305; 88342; 93005; 93010; 96374; 96375; 99285; C9113; G0378; J2060; J2250; J2270; J2704; J3360; J3411; J3475; J3480; J3490; J7030; J7050; S0119